=== PATIENT | female | born 1990 ===

== ENCOUNTER 2018-03-01 11:58 | Inpatient (IN) | payer OTHER ==
[~2018-03-01] VITALS: Ht 160 cm; Wt 88.9 kg
[2018-03-14] MEDS ORDERED: PRENATAL TABLE1 EAC2 PO (08:28)
== END 2018-03-16 13:39 | DRG 807 ==
LOC: OB/GYN 03-14 07:32 → LDR 03-14 07:32 → OB/GYN 03-14 16:52
PROVIDERS: ADMIT Specialist
PROC: 10E0XZZ Delivery of Products of Conception, External Approach (ICD-10-PCS; principal; 2018-03-14)
PROC: 10907ZC Drainage of Amniotic Fluid, Therapeutic from Products of Conception, Via Natural or Artificial Opening (ICD-10-PCS; 2018-03-14)
PROC: 0W8NXZZ Division of Female Perineum, External Approach (ICD-10-PCS; 2018-03-14)
PROC: 4A1HXCZ Monitoring of Products of Conception, Cardiac Rate, External Approach (ICD-10-PCS; 2018-03-14)
DX: O80 Encounter for full-term uncomplicated delivery (principal); Z37.0 Single live birth; Z3A.39 39 weeks gestation of pregnancy